=== PATIENT | female | born 1990 | race Caucasian/White ===

== ENCOUNTER 2020-04-19 | Inpatient (IN) | payer BC ==
[2020-04-20] MEDS ORDERED: DEXTROSE 5%-LACTATED RINGERS 1,000 ML IV SCH ×2 (01:15→09:00)
[2020-04-20] MEDS ORDERED: PROMETHAZINE HCL 25 MG/1 ML VIAL ONE (01:18)
[2020-04-20] MEDS ORDERED: BUTORPHANOL TARTRATE 2 MG/ML VIAL ONE (01:18)
[2020-04-20 01:24] LABS: BASO % 0.5 % (0-2.0); HEMATOCRIT 34.9 % (32.4-45.2); HEMOGLOBIN 11.8 GM/dL (10.7-15.3); MCH 31.3 pg (25.7-33.7); MCHC 33.7 g/dl (32.0-36.0); MEAN CELL VOLUME 92.8 fl (80-96); MEAN PLT VOLUME 10.7 fl (7.5-11.1); MONO % 7.6 % (3.8-10.2); NEUT % 77.9 % (42.8-82.8); PLATELET COUNT 157 K/MM3 (134-434); RBC 3.77 M/mm3 (3.60-5.2); RDW 14.3 % (11.6-15.6); WHITE BLOOD COUNT 10.7 K/mm3 (4.0-10.0)
[2020-04-20] MEDS ORDERED: BUTORPHANOL TARTRATE 1 MG/ML VIAL IVPB ONE (01:25)
[2020-04-20] MEDS ORDERED: PROMETHAZINE HCL 25 MG/1 ML VIAL IVPB ONE (01:25)
[2020-04-20 01:36] LABS: INR 0.89 (0.83-1.09); PROTHROMBIN TIME (PATIENT) 10.8 SEC (9.7-13.0)
[2020-04-20 01:39] LABS: ACTIVATED PTT 26.2 SECONDS (25.2-36.5)
[2020-04-20 01:43] LABS: POTASSIUM 3.9 mmol/L (3.5-5.1)
[2020-04-20 01:45] LABS: BLOOD UREA NITROGEN 10.1 mg/dL (7-18)
[2020-04-20] MEDS ORDERED: AMPICILLIN - 2 GM in SODIUM CHLORIDE 100 ML IVPB ONE (01:45)
[2020-04-20 01:48] LABS: CREATININE 0.5 mg/dL (0.55-1.3)
[2020-04-20 02:00] VITALS: BMI 33.5
[2020-04-20] MEDS ORDERED: AMPICILLIN SODIUM 2 GM VIAL ONE ×2 (02:23→11:47)
[2020-04-20] MEDS ORDERED: FENTANYL/BUPIVACAINE/NS/PF - PCEA - 50 ML DISP.SYRIN EP ONE (04:28)
[2020-04-20] MEDS ORDERED: PCA PUMP NR ONE (04:28)
[2020-04-20] MEDS ORDERED: ELECTROLYTE-148 SOLN 1,000 ML IV SCH (05:00)
[2020-04-20] MEDS ORDERED: NALOXONE HCL 0.4 MG/ML VIAL IVPUSH PRN (05:09)
[2020-04-20] MEDS ORDERED: FENTANYL/BUPIVACAINE/NS/PF - PCEA - 50 ML DISP.SYRIN EP SCH (05:15)
[2020-04-20] MEDS ORDERED: AMPICILLIN SODIUM 1 GM VIAL ONE (05:59)
[2020-04-20] MEDS: AMPICILLIN - 1 GM in SODIUM CHLORIDE 100 ML IVPB SCH ×2 (06:00→09:45)
[2020-04-20 07:48] LABS: HIV INTERPRETATION NEGATIVE (NEGATIVE)
[2020-04-20] MEDS ORDERED: OXYTOCIN 20 UNITS in 0.9% NS 20 UNIT/1,000 ML INFUS.BAG IV ONE ×2 (08:14→11:47)
[2020-04-20] MEDS ORDERED: LIDOCAINE HCL 1% PRESERVATIVE FREE - 30ML VIAL ONE ×2 (08:31→11:47)
[2020-04-20] MEDS ORDERED: METHYLERGONOVINE MALEATE 0.2 MG/1 ML AMP IM PRN (08:58)
[2020-04-20] MEDS ORDERED: BENZOCAINE 20% 57 GM BOTTLE TP PRN (08:58)
[2020-04-20] MEDS ORDERED: BISACODYL 10 MG SUPP.RECT RC PRN (08:58)
[2020-04-20] MEDS ORDERED: oxyCODONE HCL 5 MG TABLET PO PRN (08:58)
[2020-04-20] MEDS ORDERED: BENZOCAINE 28 GM HEMORRHOIDAL OINTMENT TP PRN (08:58)
[2020-04-20] MEDS ORDERED: WITCH HAZEL 50% (TUCKS) 40 PAD/JAR PAD TP PRN (08:58)
[2020-04-20] MEDS ORDERED: OXYTOCIN 20 UNITS in 0.9% NS 20 UNIT/1,000 ML INFUS.BAG IV SCH (09:00)
[2020-04-20] MEDS ORDERED: IBUPROFEN 600 MG TABLET (FP) PO ONE (09:53)
[2020-04-20] MEDS ORDERED: ACETAMINOPHEN 325 MG TABLET (FP) ONE (09:53)
[2020-04-20] MEDS: IBUPROFEN 600 MG TABLET (FP) PO PRN ×2 (09:55→19:51)
[2020-04-20] MEDS: ACETAMINOPHEN 325 MG TABLET (FP) PO PRN ×2 (09:55→19:52)
[2020-04-20] MEDS: PRENATAL VITAMINS W/ FOLIC ACID TABLET (FP) PO SCH (19:57)
[2020-04-21] MEDS: IBUPROFEN 600 MG TABLET (FP) PO PRN ×2 (03:23→16:40)
[2020-04-21] MEDS: ACETAMINOPHEN 325 MG TABLET (FP) PO PRN ×2 (03:24→16:41)
[2020-04-21 08:15] LABS: BASO % 0.4 % (0-2.0); EOS % 4.4 % (0-4.5); HEMATOCRIT 30.4 % (32.4-45.2); HEMOGLOBIN 10.1 GM/dL (10.7-15.3); LYMPH % 21.4 % (8-40); MCH 31.6 pg (25.7-33.7); MCHC 33.3 g/dl (32.0-36.0); MEAN CELL VOLUME 94.7 fl (80-96); MEAN PLT VOLUME 11.3 fl (7.5-11.1); NEUT % 66.8 % (42.8-82.8); PLATELET COUNT 153 K/MM3 (134-434); RBC 3.21 M/mm3 (3.60-5.2); RDW 14.6 % (11.6-15.6)
[2020-04-21] MEDS: PRENATAL VITAMINS W/ FOLIC ACID TABLET (FP) PO SCH (09:28)
[2020-04-21 11:47] LABS: POC NITRAZINE POS
[2020-04-21] MEDS ORDERED: SENNOSIDES/DOCUSATE COMBO (SENNA PLUS) TABLET (UD) PO PRN (22:00)
[2020-04-22] MEDS: IBUPROFEN 600 MG TABLET (FP) PO PRN ×2 (05:53→15:55)
[2020-04-22] MEDS: ACETAMINOPHEN 325 MG TABLET (FP) PO PRN ×2 (05:54→15:56)
[2020-04-22] MEDS: PRENATAL VITAMINS W/ FOLIC ACID TABLET (FP) PO SCH (09:26)
[2020-04-22 14:51] VITALS: BP 122/79; PULSE 94; TEMP 98
== END 2020-04-22 18:00 | disposition home or self-care (01) | DRG 807 ==
LOC: JLDR → UNDOADMIN → JLDR 04-20 → J3W 04-20 11:00
PROVIDERS: ADMIT Obstetrics & Gynecology; ATTEND Obstetrics & Gynecology
PROC: 10E0XZZ Delivery of Products of Conception, External Approach (ICD-10-PCS; principal; 2020-04-20)
PROC: 0HQ9XZZ Repair Perineum Skin, External Approach (ICD-10-PCS; 2020-04-20)
PROC: 0W8NXZZ Division of Female Perineum, External Approach (ICD-10-PCS; 2020-04-20)
DX: O70.0 First degree perineal laceration during delivery (principal); Z37.0 Single live birth; Z3A.40 40 weeks gestation of pregnancy
CPT/HCPCS: 36415; 59409; 80048; 83986-QW; 85025; 85610; 85730; 86780; 86850; 86900; 86901; 87389; C9803; U0003